=== PATIENT | female | born 1940 | race Caucasian/White ===

== ENCOUNTER 2017-05-11 03:22 | Inpatient (IN) | payer MEDICARE ==
[2017-05-11 04:24] LABS: CO2 Tension 43.6 mmHg (35.0-45.0); pH, Arterial 7.32 (7.35-7.45)
[2017-05-11 04:25] LABS: Actual Bicarbonate (HCO3a) 22.2 mEq/L (22-26); Base Excess (BEa) -3.8 mEq/L (0 (+/-) 2.5); Calcium, Ionized 1.2 mmol/L (1.12-1.30); Hematocrit-ABG 50.2 % (36.0-47.0); O2 Tension (PaO2) 55.3 mmHg (80.0-100.0)
[2017-05-11 04:26] LABS: Analyzer IN Cardio ER; Puncture Site LRA
[2017-05-11 06:10] LABS: Troponin I 1.874 ng/mL (< 0.028)
[2017-05-11] MEDS ORDERED: Enoxaparin Sodium 80 MG/0.8 ML SYRINGE ONE (06:13)
[2017-05-11] MEDS ORDERED: Ondansetron HCl/PF 4 MG/2 ML Vial IVP PRN (08:06)
[2017-05-11] MEDS ORDERED: Mag-Al 1200 mg/1200 mg/30 ML UDCUP PO PRN (08:06)
[2017-05-11] MEDS ORDERED: Nitroglycerin 0.4 MG TAB (25 Tab Bottle) PO PRN (08:06)
[2017-05-11] MEDS ORDERED: Zolpidem Tartrate 5 MG TAB PO PRN (08:06)
[2017-05-11] MEDS ORDERED: Artificial Tears 18 DROP/0.9 ML EA EYE PRN (08:06)
[2017-05-11] MEDS ORDERED: Ondansetron ODT 4 MG TAB PO PRN (08:06)
[2017-05-11] MEDS ORDERED: Loratadine 10 MG TAB PO PRN (08:06)
[2017-05-11] MEDS ORDERED: Milk Of Magnesia 30 ML UDCUP PO PRN (08:06)
[2017-05-11] MEDS ORDERED: Chloraseptic Spray 180 ml Bottle PO PRN (08:06)
[2017-05-11] MEDS ORDERED: HYDROcodone/Acetaminophen 5/325 mg Tablet PO PRN (08:06)
[2017-05-11] MEDS ORDERED: Senokot 8.6 MG TAB PO PRN (08:06)
[2017-05-11] MEDS ORDERED: Eucerin (Mineral Oil/Petrolatum,White) 30 gm Jar TOP PRN (08:06)
[2017-05-11] MEDS ORDERED: Diabetic Tussin 200 MG/10 ML UDCUP PO PRN (08:06)
[2017-05-11] MEDS ORDERED: Sodium Chloride 0.65% Nasal 44 ML BOT EA NARE PRN (08:06)
[2017-05-11] MEDS ORDERED: Loperamide HCl 2 MG CAP PO PRN (08:06)
[2017-05-11] MEDS ORDERED: Dextrose 5% in Water 1,000 ML IV PRN (08:10)
[2017-05-11] MEDS ORDERED: Dextrose 50% Abboject 50 ML SYRINGE SLOW IVP PRN (08:10)
[2017-05-11] MEDS ORDERED: HumaLOG 300 UNITS/3 ML VIAL SC PRN ×2 (08:10)
[2017-05-11 08:55] LABS: Troponin I 2.898 ng/mL (< 0.028)
[2017-05-11] MEDS ORDERED: Lisinopril 2.5 MG TAB PO SCH ×2 (09:00→21:00)
[2017-05-11] MEDS ORDERED: Aspirin 325 MG TAB PO SCH (09:00)
[2017-05-11 09:14] LABS: Hemoglobin A1c 5.1 % (4.0-6.0)
[2017-05-11] MEDS: Enoxaparin Sodium 80 MG/0.8 ML SYRINGE SC SCH ×2 (09:30→21:05)
[2017-05-11] MEDS: Aspirin 325 MG TAB PO SCH (09:31)
[2017-05-11] MEDS: Carvedilol 3.125 MG TAB PO SCH ×2 (09:31→21:04)
[2017-05-11] MEDS: Famotidine 20 MG TAB PO SCH (09:34)
--- NOTE | 2017-05-11 10:23 | HP ---
PRIMARY CARE PHYSICIAN: In [facility], this is CT call admission. REASON FOR ADMISSION: Transfer from [facility] for acute pulmonary edema, new onset CHF and non-ST elevation [place]. HISTORY OF PRESENT ILLNESS: A 76-year-old female who has history of coronary artery disease as well as history of CABG about 15 years ago. Along with that she has history of hypertension and dyslipide martir. Yesterday, patient was having cough. She was feeling shortness of breath with exertion. She went ou tside and did shopping. When she returned home, at that time, patient was having cough. She thought that everybody around her was having flu-like symptoms and that is why she was trying cough drops. Around 9:30 p.m., she went to bed, but she was not able to lie down flat. She was getting more and m ore shortness of breath. Around 11:00 p.m. she was not able to breathe at all and she was having a h armida time catching deep breath and she was comfortable in her chest congested and that is why she aske d her family member to take her to the emergency room. The patient was brought to [facility]. At that time, patient was hypertensive. Her blood pressure was 238/132. She was tachycardic with pulse 112 and tachypneic with respiratory rate 28. She was afebrile. She was barely maintaining saturation 91% on nonrebreather. The patient also had routine blood test there which showed hyperglycemia, but patient does not have a ny history of diabetes. At [facility], patient was given Lasix 80 mg. Subsequently another dose of Lasix 16 0 mg and then another dose of Lasix 80 mg x2 were given. The patient was also given DuoNeb therapy. Patient was also given Solu-Medrol 250 mg IV as well as nitropatch was applied. In the emergency room, patient's chest x-ray showed pulmonary edema. Her routine blood tests showed elevated D-dimer as well as elevated BNP. Her troponin was initially indeterminant and subsequently patient's troponin increased significantly. This patient was not complaining of any chest pain. She denies any palpitation or dizziness. She denies any lower extremity edema. She denies any constipa tion, diarrhea, melena, hematochezia. She denies any abdominal pain. She denies any UTI symptoms. PAST MEDICAL HISTORY: Coronary artery disease requiring CABG about 15 years ago, hypertension, dysli pidemia, ? history of COPD, ? history of CHF. PAST SURGICAL HISTORY: CABG, hysterectomy and tubal ligation. PAST PSYCHIATRIC HISTORY: Reviewed and negative. SOCIAL HISTORY: Patient smokes cigarettes about less than half pack per day. She denies any alcohol abuse. She denies any other illicit drug abuse. She lives at home with family. EMERGENCY ROOM COURSE: Patient is given Lasix 80 mg, then Lasix 160 mg, then Lasix 80 mg x2, Solu-Me drol 250 mg, DuoNeb therapy x2 and nitropatch was applied. REVIEW OF SYSTEMS: The following complete review of systems was negative, unless otherwise mentioned in the HPI or below: Constitutional: Weight loss or gain, ability to conduct usual activities. Skin: Rash, itching. Eyes: Double vision, pain. ENT/Mouth: Nose bleeding, neck stiffness, pain, tenderness. Cardiovascular: Palpitations, dyspnea on exertion, orthopnea. Respiratory: Shortness of breath, wheezing, cough, hemoptysis, fever or night sweats. Gastrointestinal: Poor appetite, abdominal pain, heartburn, nausea, vomiting, constipation, or diarr hea. Genitourinary: Urgency, frequency, dysuria, nocturia. Musculoskeletal: Pain, swelling. Neurologic/Psychiatric: Anxiety, depression. Allergy/Immunologic: Skin rash, bleeding tendency. Please see my HPI for pertinent positives and negatives. All other review of systems reviewed and ne gative except as mentioned in the HPI. ALLERGIES: No known drug allergies. CURRENT HOME MEDICATIONS: Metoprolol 50 mg twice daily, Lipitor 80 mg p.o. at bedtime, Prevacid 15 m g p.o. daily, aspirin 81 mg p.o. daily, Anacin for headache as needed. FAMILY HISTORY: No strong family history of premature coronary artery disease, stroke or cancer. PHYSICAL EXAMINATION: VITAL SIGNS: On arrival, blood pressure 149/86, pulse 85, respiratory rate 18, saturation 98% on BiP AP, temperature 97.9, weight 83.4 kilograms. Initially at [facility], her blood pre ssure was 213/132, pulse 112, respiratory rate 28, temperature 97.2, and saturation 91% on nonrebreat her. Currently, in ICU. The patient is currently on nasal cannula. HEAD: Normocephalic, atraumatic. EYES: Left pupil is dilated and nonreactive, and right pupil is small and reactive. ENT: Oropharynx within normal limits. Moist mucous membranes. No pharyngeal erythema, no exudates. NECK: Supple, no JVD, no thyromegaly, no carotid bruits. LUNGS: Bibasilar rales noted. No rhonchi. At this point, no wheeze. No accessory muscles of respi ration in use. CARDIAC: S1, S2 regular. No murmur, no gallop, no rub. ABDOMEN: Soft, bowel sounds present, nontender, nondistended. No organomegaly, no mass, no suprapub ic tenderness. BACK: Examination unremarkable, no CVA tenderness. EXTREMITIES: Upper extremity passive movements of all joints are normal. Lower extremities: No aman ma. Good peripheral pulsation. No calf tenderness. SKIN: No skin rash. HEMATOLOGICAL SYSTEM: No lymphadenopathy. PSYCHIATRIC: Normal affect. NEUROLOGIC: The patient is alert and oriented x3. Cranial nerves II-XII intact. Motor and sensatio n within normal limits. No focal neurological deficit noted. IMAGING AND SIGNIFICANT LABORATORY DATA: 1. EKG based on my review, complete left bundle branch block pattern, left atrial enlargement. 2. Chest x-ray consistent with bilateral pulmonary congestion with pleural effusion and pulmonary ed ami. 3. CT brain based on my review, no acute intracranial process. 4. CBC: WBC 14.7, hemoglobin 15.3, platelets 178 with bandemia. INR 1.1. D-dimer 2.20. 5. ABG: A pH 7.32, CO2 43.6, O2 55.3, saturation 88.5, bicarbonate 22.2. 6. BMP: Sodium 145, potassium 3.7, chloride 107, carbon dioxide 22, anion gap 22, BUN 18, creatinin e 1.15, glucose 333, calcium 8.4, hemoglobin A1c 5.1. 7. LFT: AST 72, ALT 38, alkaline phosphatase 135, albumin 3.7, CK-MB 2.7, troponin I 0.061, then 1. 874, then 2.89, BNP 2180. ASSESSMENT AND PLAN/IMPRESSION: 1. Acute hypoxic respiratory failure due to acute pulmonary edema due to acute congestive heart fail ure, likely systolic, not resolved. The patient required initially bilevel positive airway pressure in the emergency room. The patient required Lasix and after that the patient had significant improve ment in her pulmonary edema. Initially, chest x-ray showed pulmonary edema, but repeat chest x-ray s hows improvement in congestion. We will try to wean off oxygen as tolerated. 2. Acute pulmonary edema, likely due to acute systolic congestive heart failure. Pulmonary edema antoine s significantly improved after bilevel positive airway pressure as well as diuretic therapy. Repeat chest x-ray also shows improvement. 3. Acute congestive heart failure. The patient was having acute pulmonary edema and acute dyspnea. Etiology uncertain, but suspecting from cardiac etiology. It is unclear whether this patient has pr evious history of congestive heart failure, but patient denies by herself. We will obtain echocardio graphy to assess ejection fraction and other structural abnormality. I am suspecting systolic conges tive heart failure. I will start Coreg 3.125 mg p.o. b.i.d., lisinopril 2.5 mg p.o. daily, nitropatc h q.8 hourly and we will continue Lasix 40 mg IV b.i.d. and cardiac rehabilitation will be consulted. Cardiology will be consulted as well. We will monitor electrolytes and replace electrolytes as nee ded basis. 4. Non-ST elevation myocardial infarction, most likely related with demand ischemia, but the patient has a history of coronary artery disease and coronary artery bypass graft about 15 years ago. She n ever had any further evaluation. This patient had several risk factors for coronary artery disease a s well. I consulted Cardiology and spoke with Dr. Fabian and patient will need cardiac catheteriza tion upon stabilization. We will also check lipid profile tomorrow and we will continue with aspirin 325 mg p.o. daily, Lovenox 1 mg per kg along with KARINA inhibitor and beta-uriel therapy. 5. Hyperglycemia. This patient has hyperglycemia when they checked blood tests in midnight. Hemogl obin A1c is 5.1. Today, we will just monitor Accu-Chek and if Accu-Chek returns out to be normal the n we will discontinue hyperglycemia protocol treatment. 6. Hypertension with hypertensive urgency on admission. Hypertensive urgency, resolved. We will co ntinue with Coreg and lisinopril as above, nitropatch as above along with Lasix therapy and adjust bl ood pressure medication. 7. Coronary artery disease. Patient is already on full treatment for coronary artery disease. Curr ently, patient has mty-RI-rpxtyciys myocardial infarction and that is why Cardiology consulted. 8. Dyslipidemia. We will check lipid profile tomorrow and continue Lipitor 40 mg p.o. at bedtime. 9. Left bundle branch block, etiology uncertain, but onset is also uncertain. It is unclear whether this is new or old, but we will try to obtain the old EKG from her primary care physician or cardiol ogist if possible. 10. Elevated D-dimer. We will do ultrasound of the lower extremity to rule out any deep venous thro mbosis. 11. Pupillary asymmetry. This patient does not have any diplopia or any blurred vision or does not have any focal neurological deficit, but patient did not know this, but she does have a history of ca taract surgery. We will try to do CT brain to rule out any process, but I doubt if patient has any p roblems with this. 12. Deep venous thrombosis prophylaxis. Patient is already on full dose of Lovenox therapy. 13. Gastrointestinal prophylaxis. Pepcid 20 mg p.o. b.i.d. 14. Code status: The patient is FULL CODE. Disposition plan based on clinical course. Total time spent providing critical care to this patient is more than 30 minutes.
--- NOTE | 2017-05-11 10:26 | CT ---
CT BRAIN WITHOUT CONTRAST: Date: 05/11/17 HISTORY: Unequal pupils. Evaluate for hemorrhage. COMPARISON: None. FINDINGS: No acute territorial infarct or hemorrhage. No midline shift or mass effect. Ventricular size and ext ra-axial CSF spaces are normal. Calvarium is intact. Paranasal sinuses and mastoids are clear. IMPRESSION: No acute intracranial abnormality. POS: [facility]
--- NOTE | 2017-05-11 11:15 | RAD ---
AP VIEW OF CHEST: Date: 05/11/17 HISTORY: Congestive heart failure. FINDINGS: Comparison made to previous exam from 05/11/17. AP view of chest demonstrates sternotomy wires seen. Cardiomegaly is noted. There are marked decrease d perihilar air space opacities compatible with resolving pulmonary edema significantly improved from the previous exam obtained earlier in the day. No evidence of effusions seen. IMPRESSION: 1. Decreasing perihilar air space opacities compatible with decreased pulmonary edema. 2. Cardiomegaly. 3. Some residual pulmonary vascular congestion seen. POS: [facility]
[2017-05-11 12:01] LABS: Troponin I 3.447 ng/mL (< 0.028)
[2017-05-11] MEDS ORDERED: Furosemide 100 MG/10 ML VIAL SLOW IVP SCH (14:00)
[2017-05-11] MEDS: Nitroglycerin 2% Ointment 1 INCH/1 GM Packet TOP SCH ×2 (14:08→21:05)
[2017-05-11] MEDS: Furosemide 40 MG/4 ML VIAL SLOW IVP SCH (14:09)
[2017-05-11 14:27] LABS: Bilirubin Negative (Negative); Blood, Urine Large (Negative); Clarity CLOUDY (Clear); Glucose, Urine (Dipstick) Negative (Negative); Leukocyte Small (Negative); Nitrite Negative (Negative); Protein, Urine (Dipstick) 100 mg/dL (Neg-Trace); Specific Gravity, Urine 1.023 (1.002-1.036); Urobilinogen 0.2 mg/dL (0.2-1.0)
[2017-05-11 14:31] LABS: RBC/HPF GREATER THAN 50-TNTC HPF (0-3); WBC/HPF 21-50 HPF (0-3)
[2017-05-11 14:32] LABS: Pathc Cast-AUWi Flag 5.96 (0-2.49)
[2017-05-11 14:53] LABS: Bacteria/HPF 1+ HPF (None Seen); Hyaline Casts/LPF 0-3 HYALINE CAST LPF (0-3 Hyaline); Manual Microscopic Reviewed? No Path Casts Seen; Renal Epithelial None Seen HPF (0-3); Transitional Epithelial NONE SEEN HPF (0-3)
--- NOTE | 2017-05-11 16:16 | ULT ---
BILATERAL LOWER EXTREMITY VENOUS DOPPLER ULTRASOUND: Date: 05/11/17 HISTORY: Elevated D-Dimer. TECHNIQUE: Multiple longitudinal and transverse images of the right and left lower extremity venous systems are obtained using multihertz linear array transducer. Real-time, color flow, and spectral waveform Doppl er analysis used to evaluate the right and left lower extremity venous systems. FINDINGS: No evidence of acute or old clot seen on the right or left common femoral, superficial femoral, femor a profunda, popliteal, posterior tibial veins, post-trifurcation veins, and greater saphenous veins. IMPRESSION: No evidence of right or left lower extremity deep venous thrombosis. POS: [facility]
[2017-05-11 16:50] LABS: Critical Call Chem Troponin I RESULT DECREASING; Troponin I 3.049 ng/mL (< 0.028)
--- NOTE | 2017-05-11 19:14 | CON ---
DATE OF CONSULTATION: 05/11/2017 HISTORY OF PRESENT ILLNESS: The patient is a 76-year-old woman who presents for evaluation of increa sing acute onset of dyspnea. The patient states approximately 15 years ago, she underwent coronary b ypass graft surgery x4. The patient has done extremely well. Unfortunately, she has continued to ab use tobacco. She states that yesterday she developed acute onset of dyspnea. She denied having any chest discomfort. She came to the hospital markedly short of breath. PAST MEDICAL HISTORY: Significant for, 1. Coronary artery disease. 2. Hypertension. 3. Dyslipidemia. PAST SURGICAL HISTORY: Coronary bypass graft surgery, hysterectomy, tubal ligation. SOCIAL HISTORY: The patient has a long history of continued tobacco abuse. MEDICATIONS ON ADMISSION: Lipitor 80 at bedtime, aspirin 81 daily, metoprolol 50 XL p.o. b.i.d., and Prevacid 1 tablet daily. ALLERGIES: No known drug allergies. FAMILY HISTORY: Positive family history of coronary artery disease. PHYSICAL EXAMINATION: GENERAL: This is a well-developed woman in no acute distress. VITAL SIGNS: Blood pressure 128/50. NECK: Showed no jugular venous distention. LUNGS: Have a few crackles in both bases. HEART: Regular rate and rhythm, normal S1 and S2 with a 1/6 systolic murmur. ABDOMEN: Nondistended. EXTREMITIES: Showed mild bilateral edema. SKIN: Warm and dry. NEUROLOGIC: Nonfocal. VASCULAR: Radial pulses are 2+. LABORATORY RESULTS: Got her to have a white blood count 14.7, hemoglobin 15.3, hematocrit 47.9, and her platelets are 178. Sodium was 145, potassium 3.7, chloride 107, bicarbonate 20, BUN 18, creatini ne 1.15, troponin was 1.874, BNP was 2180. IMAGING DATA: Her EKG revealed her to have normal sinus rhythm with a left bundle branch block. Holli st x-ray revealed cardiomegaly with pulmonary vascular congestion. Echocardiogram revealed severe de crease in left systolic function, estimated ejection fraction 20% to 25%, left ventricle is dilated. IMPRESSION: 1. Congestive heart failure, acute systolic. 2. Non-ST elevation myocardial infarction. 3. Severe ischemic cardiomyopathy. 4. History of coronary bypass graft surgery x4. 5. Dyslipidemia. 6. Hypertension. 7. Tobacco abuse. This unfortunate woman has a severe ischemic cardiomyopathy, who presented with acute pulmonary edema . From a cardiac standpoint, she will be switched to Coreg and started on KARINA inhibitor therapy. Th e patient will be continued on aspirin and lipid lowering medication. We will discuss with the patie nt and her family whether they would like to proceed with repeat invasive evaluation. We will also a dd spironolactone. We will follow this patient with you through her hospitalization. Critical care note time is 60 minutes.
[2017-05-11] MEDS ORDERED: FLU VACC TS2017-18 (>65YR) 0.5 ML SYRINGE IM ONE (21:00)
[2017-05-11] MEDS: Atorvastatin Calcium 40 MG TAB PO SCH (21:04)
[2017-05-11] MEDS: Sodium Chloride 0.9% 10 ML ONE (21:10)
[2017-05-11] MEDS ORDERED: Sodium Chloride 0.9% 10 ML ONE (21:41)
[2017-05-11] MEDS: hydrALAZINE 20 MG/ML VIAL SLOW IVP PRN (21:42)
[2017-05-11] MEDS: Acetaminophen 325 MG TAB PO PRN (21:42)
--- NOTE | 2017-05-12 00:32 | CON ---
DATE OF CONSULTATION: 05/11/2017 HISTORY OF PRESENT ILLNESS: Mr. Quintanilla is a 76-year-old female. She had coronary artery bypass g dariusz 15 years ago. She had 4-vessel bypass. Unfortunately, she has continued to smoke, although she says "not that much ." She smoked less than half pack a day, but I have explained to her this does not help her bypass g ubaldo. Yesterday she started having progressive shortness of breath. She had some chest tightness as well. She subsequently was admitted. She was aggressively diuresed and says she is 100% better. PAST MEDICAL HISTORY: Remarkable for hypertension, lipid disorder, hysterectomy and tubal ligation. SOCIAL HISTORY: She smokes a half pack a day. She is not drinking. ALLERGIES: Reports no drug allergies. MEDICATIONS: Prior to admission, she was on Lipitor, aspirin, metoprolol, and Prevacid. FAMILY HISTORY: She has a family history of vascular disease. No history of lung disease at an susan y age. REVIEW OF SYSTEMS: She denies headache. She denies fever, chills leading up to this. She denies pleuritic chest discomfort or hemoptysis. He has had no nausea, vomiting, diarrhea, bright red blood per rectum, melena, gross hematuria or dys uria. Ten-point review of systems otherwise negative. PHYSICAL EXAMINATION: VITAL SIGNS: Blood pressure 159/73 this evening. She is afebrile, heart rate 76, respiratory rate 1 8, oximetry is 92. HEENT: Pupils are equal. Sclerae is anicteric. NECK: Supple. LUNGS: Clear. HEART: Regular rhythm. S1 and S2 are normal. ABDOMEN: Soft. EXTREMITIES: Without asymmetry. LABORATORY DATA: White count was 14.7, hemoglobin 15.3, platelets 178,000. Sodium 145, potassium 3. 7, chloride 107, bicarbonate 20, BUN 18, creatinine 1.15, pH 7.32, CO2 of 43, PO2 of 55 earlier this morning. I repeated a radiograph this morning which showed improvement of her pulmonary edema. IMPRESSION: Cardiogenic pulmonary edema, clinically improved. She is stable. I do not believe she needs to remain in the Critical Care Unit. I recommended transfer out to a monitored bed. This is a 70 minute consult, greater than 70% of the time was spent reviewing records, interviewing the patien t and confirmed with nursing staff on the unit.
[2017-05-12] MEDS ORDERED: Sodium Chloride 0.9% 10 ML ONE ×3 (05:44→18:48)
[2017-05-12 06:04] LABS: #Lymphocytes 1.4 thou/uL (1.20-3.40); #Monocytes 1.1 thou/uL (0.11-0.59); #Neutrophils 12.6 thou/uL (1.40-6.50); %Eosinophils 0.1 % (0.0-10.0); %Lymphocytes 9.1 % (21.0-51.0); %Neutrophils 83.7 % (42.0-75.0); Hemoglobin 14.7 g/dL (12.0-16.0); Mean Corpuscular HGB CONC 32.2 g/dL (32.0-36.0); Mean Corpuscular Hemoglobin 31.4 pg (27.0-31.0); Mean Corpuscular Volume 97.5 fl (81.0-99.0); Mean Platelet Volume 9.4 fL (7.4-10.4); Platelet Count 139 thou/uL (130-400); RBC Distribution Width 13.2 % (11.5-14.5); Red Blood Cell (RBC) Count 4.68 mill/uL (4.20-5.40)
[2017-05-12] MEDS: Furosemide 40 MG/4 ML VIAL SLOW IVP SCH ×2 (06:16→15:29)
[2017-05-12] MEDS: Nitroglycerin 2% Ointment 1 INCH/1 GM Packet TOP SCH (06:18)
[2017-05-12 06:23] LABS: ALT (SGPT) 26 U/L (8-55); AST (SGOT) 46 U/L (5-34); Albumin 3.5 g/dL (3.4-4.8); Alkaline Phosphatase 96 U/L (40-150); Anion Gap 15 mmol/L (10-20); BUN (Urea Nitrogen) 27 mg/dL (9.8-20.1); Calc. Creatinine Clearance 66 mL/min (70-130); Calcium 8.8 mg/dL (7.8-10.44); Carbon Dioxide 24 mmol/L (23-31); Cardiac Risk 2.7 (Less than 4.5); Cholesterol 121 mg/dl (< 200 Desired); Estimated GFR-MDRD 62; Glucose 101 mg/dL (83-110); HDL Cholesterol 45 mg/dL (>60 Neg Risk); LDL Cholesterol, Calculated 63 mg/dL; Magnesium 1.8 mg/dL (1.6-2.6); Potassium 3.3 mmol/L (3.5-5.1); Protein, Total 7.5 g/dL (6.0-8.3); Sodium 136 mmol/L (136-145); Triglycerides 66 mg/dL (Less than 150); Uric Acid 6.1 mg/dL (2.6-6.0)
[2017-05-12 06:32] LABS: Chloride 100 mmol/L (98-107)
[2017-05-12] MEDS ORDERED: cefTRIAXone\\ROCEPHIN 1 GM in Sodium Chloride 0.9% 100 ML IVPB SCH (08:45)
[2017-05-12] MEDS ORDERED: Lisinopril 5 MG TAB PO SCH (09:00)
[2017-05-12] MEDS: Spironolactone 25 MG TAB PO SCH (09:12)
[2017-05-12] MEDS: Aspirin 325 MG TAB PO SCH (09:13)
[2017-05-12] MEDS: Famotidine 20 MG TAB PO SCH (09:13)
[2017-05-12] MEDS: Enoxaparin Sodium 80 MG/0.8 ML SYRINGE SC SCH ×2 (09:14→20:45)
[2017-05-12] MEDS ORDERED: Carvedilol 6.25 MG TAB PO SCH (09:30)
[2017-05-12] MEDS: Acetaminophen 325 MG TAB PO PRN (11:40)
[2017-05-12] MEDS: Sodium Chloride 0.9% 10 ML ONE (11:41)
--- NOTE | 2017-05-12 11:57 | PDOC.PN ---
- Subjective Encounter Start Date: 05/12/17 Encounter Start Time: 07:15 -: old records requested/rev pt did not sleep good last night, has dyspnea, has cough, no fever, no chest pain, family bedside - Objective Resuscitation Status: Resuscitation Status FULL:Full Resuscitation MAR Reviewed: Yes Vital Signs & Weight: Vital Signs (12 hours) Temp Pulse Resp BP BP Pulse Ox 05/12/17 11:00 97.8 F 81 18 143/65 H 93 L 05/12/17 09:26 169/77 H 05/12/17 09:25 91 169/77 H 05/12/17 08:05 172/84 H 05/12/17 07:40 99.0 F 91 17 192/84 H 92 L 05/12/17 06:13 90 20 193/88 H 05/12/17 04:00 98.1 F 85 24 H 158/68 H 91 L Weight Weight 169 lb 1.6 oz Most Recent Monitor Data Heart Rate from ECG 82 NIBP 156/65 NIBP BP-Mean 99 Respiration from ECG 20 SpO2 95 I&O: 05/11/17 05/12/17 05/13/17 06:59 06:59 06:59 Intake Total 914 Output Total 1735 Balance -821 Result Diagrams: 05/12/17 05:24 05/12/17 05:24 Additional Labs: Accuchecks 05/12/17 05/11/17 05/11/17 06:30 20:06 16:31 POC Glucose 117 H 127 H 134 H Radiology Reviewed by me: Yes (echo- systolic dysfunction) EKG Reviewed by me: Yes (nsr) Phys Exam - Physical Examination Constitutional: NAD HEENT: PERRLA, moist MMs, sclera anicteric Neck: no JVD, supple Respiratory: no wheezing, no rhonchi basilar rales Cardiovascular: RRR, no significant murmur, no rub Gastrointestinal: soft, non-tender, no distention, positive bowel sounds Musculoskeletal: no edema, pulses present Neurological: non-focal, normal sensation, moves all 4 limbs Psychiatric: normal affect, A&O x 3 Skin: no rash, normal turgor Dx/Plan (1) Acute respiratory failure with hypoxia Code(s): J96.01 - ACUTE RESPIRATORY FAILURE WITH HYPOXIA Status: Acute (2) Acute systolic CHF (congestive heart failure) Code(s): I50.21 - ACUTE SYSTOLIC (CONGESTIVE) HEART FAILURE Status: Acute (3) Hypokalemia Code(s): E87.6 - HYPOKALEMIA Status: Acute (4) NSTEMI (non-ST elevated myocardial infarction) Code(s): I21.4 - NON-ST ELEVATION (NSTEMI) MYOCARDIAL INFARCTION Status: Acute (5) UTI (urinary tract infection) Status: Acute (6) CAD (coronary artery disease) Code(s): I25.10 - ATHSCL HEART DISEASE OF [place] CORONARY ARTERY W/O ANG PCTRS Status: Chronic (7) Dyslipidemia Code(s): E78.5 - HYPERLIPIDEMIA, UNSPECIFIED Status: Chronic (8) Hypertension Code(s): I10 - ESSENTIAL (PRIMARY) HYPERTENSION Status: Chronic (9) Acute pulmonary edema Code(s): J81.0 - ACUTE PULMONARY EDEMA Status: Resolved (10) Hypertensive urgency Code(s): I16.0 - HYPERTENSIVE URGENCY Status: Resolved - Plan cont current plan of care, plan discussed w/ family, continue antibiotics * today will increase coreg and lisinopril * continue lasix * add rocephin for aysmptmatic UTI * cardiology following and decide for if needed any cardiac cath * will adjust BP meds * discussed with family * medication reviewed as below * symptomatic treatment * replace potassium * repeat labs tomorrow * wean off oxygen as needed * DC Rios tomorrow * continue current optimal medical therapy for NSTEMI and CHF. * cardiac rehab Review of Systems - Review of Systems Constitutional: negative: fever, chills, sweats, weakness, malaise, other Eyes: negative: Pain, Vision Change, Conjunctivae Inflammation, Eyelid Inflammation, Redness, Other Respiratory: Cough, Shortness of Breath, SOB with Excertion. negative: Dry, Hemoptysis, Pleuritic Pain, Sputum, Wheezing Cardiovascular: negative: chest pain, palpitations, orthopnea, paroxysmal nocturnal dyspnea, edema, light headedness, other Gastrointestinal: negative: Nausea, Vomiting, Abdominal Pain, Diarrhea, Constipation, Melena, Hematochezia, Other Genitourinary: negative: Dysuria, Frequency, Incontinence, Hematuria, Retention , Other Musculoskeletal: negative: Neck Pain, Shoulder Pain, Arm Pain, Back Pain, Hand Pain, Leg Pain, Foot Pain, Other Skin: negative: Rash, Lesions, John, Bruising, Other - Medications/Allergies Allergies/Adverse Reactions: Allergies Allergy/AdvReac Type Severity Reaction Status Date / Time No Known Allergies Allergy Unverified 05/11/17 07:42 Medications: Current Medications Acetaminophen (Tylenol) 650 mg PO Q4H PRN PRN Reason: Headache/Fever or Pain Last Admin: 05/12/17 11:40 Dose: 650 mg Hydrocodone Bitart/Acetaminophen ([place] 5/325) 1 tab PO Q4H PRN PRN Reason: Moderate Pain (4-6) Al Hydroxide/Mg Hydroxide (Maalox) 30 ml PO Q6H PRN PRN Reason: Heartburn or Indigestion Artificial Tears (Tears Naturale) 0 drop EA EYE PRN PRN PRN Reason: Dry Eyes Aspirin (Aspirin) 325 mg PO DAILY [facility] Last Admin: 05/12/17 09:13 Dose: 325 mg Atorvastatin Calcium (Lipitor) 40 mg PO [facility] Last Admin: 05/11/17 21:04 Dose: 40 mg Carvedilol (Coreg) 6.25 mg PO BID-[facility] Carvedilol (Coreg) 6.25 mg PO NOW [facility] Stop: 05/12/17 12:00 Last Admin: 05/12/17 09:26 Dose: 6.25 mg Dextrose/Water (Dextrose 50%) 25 gm SLOW IVP PRN PRN PRN Reason: Hypoglycemia Enoxaparin Sodium (Lovenox) 80 mg SC 0900,2100 [facility] Last Admin: 05/12/17 09:14 Dose: 80 mg Famotidine (Pepcid) 20 mg PO DAILY [facility] Last Admin: 05/12/17 09:13 Dose: 20 mg Furosemide (Lasix) 40 mg SLOW IVP 0600,1400 [facility] Last Admin: 05/12/17 06:16 Dose: 40 mg Glucagon (Glucagon) 1 mg IM PRN PRN PRN Reason: Hypoglycemia Guaifenesin (Robitussin Sf) 200 mg PO Q4H PRN PRN Reason: Cough Last Admin: 05/12/17 09:24 Dose: 200 mg Hydralazine HCl (Apresoline) 10 mg SLOW IVP Q4H PRN PRN Reason: Systolic BP > 180 Last Admin: 05/11/17 21:42 Dose: 10 mg Dextrose/Water (D5w) 1,000 mls @ 0 mls/hr IV .Q0M PRN; As Directed PRN Reason: Hypoglycemia Ceftriaxone Sodium 1 gm/ (Sodium Chloride) 100 mls @ 200 mls/hr IVPB Q24HR [facility] Last Admin: 05/12/17 11:40 Dose: 100 mls Insulin Human Lispro (Humalog) 0 units SC .MODERATE SLIDING SC PRN PRN Reason: Moderate Correctional Scale Last Admin: 05/11/17 10:15 Dose: 2 unit Insulin Human Lispro (Humalog) 0 units SC .BEDTIME SLIDING SC PRN PRN Reason: Bedtime Correctional Scale Lisinopril (Zestril) 5 mg PO BID [facility] Last Admin: 05/12/17 09:25 Dose: 5 mg Loperamide HCl (Imodium) 2 mg PO PRN PRN PRN Reason: Diarrhea/Loose Stools Loratadine (Claritin) 10 mg PO DAILYPRN PRN PRN Reason: Sinus Symptoms Magnesium Hydroxide (Milk Of Magnesium) 30 ml PO DAILYPRN PRN PRN Reason: Constipation Mineral Oil/White Petrolatum (Eucerin Cream) 0 gm TOP BIDPRN PRN PRN Reason: Dry Skin Nitroglycerin (Nitrostat) 0.4 mg PO Q5MIN PRN PRN Reason: Chest Pain Nitroglycerin (Nitro-Bid 2% Ointment) 0.5 inch TOP Q8HR [facility] Last Admin: 05/12/17 06:18 Dose: 0.5 inch Ondansetron HCl (Zofran Odt) 4 mg PO Q6H PRN PRN Reason: Nausea/Vomiting Ondansetron HCl (Zofran) 4 mg IVP Q6H PRN PRN Reason: Nausea/Vomiting Phenol (Chloraseptic [place] 180 Ml Bot) 0 ml PO PRN PRN PRN Reason: Sore Throat Potassium Chloride (K-Dur) [address] [facility] Senna (Senokot) 2 tab PO HSPRN PRN PRN Reason: Constipation Sodium Chloride ([place] Nasal [place] 0.65%) 0 ml EA NARE QIDPRN PRN PRN Reason: Nasal Congestion Spironolactone (Aldactone) 25 mg PO QA-[facility] Last Admin: 05/12/17 09:12 Dose: 25 mg Zolpidem Tartrate (Ambien) 5 mg PO HSPRN PRN PRN Reason: Insomnia
[2017-05-12] MEDS ORDERED: Potassium Chloride 20 MEQ TAB PO SCH (17:30)
--- NOTE | 2017-05-12 18:31 | PRG ---
DATE OF SERVICE: 05/12/2017 SUBJECTIVE: Marianne Quintanilla is not having any shortness of breath. She does report some cough and c hest congestion. PHYSICAL EXAMINATION: VITAL SIGNS: She is afebrile, heart rate is 85, respiratory rate is 18, blood pressure 146/67. Inta ke and output is negative 821. LUNGS: Remarkable for faint wheezes. IMPRESSION: 1. Cardiogenic pulmonary edema/new onset of congestive heart failure this admission. 2. Ejection fraction of 20%-25%. 3. History of smoking ? some component of chronic obstructive pulmonary disease versus retained secr etions, and atelectasis. PLAN: Add nebulizer treatments. Continue current care. Take albuterol 4 times a day while awake.
[2017-05-12] MEDS: Carvedilol 6.25 MG TAB PO SCH (18:41)
[2017-05-12] MEDS: hydrALAZINE 20 MG/ML VIAL SLOW IVP PRN (18:50)
[2017-05-12] MEDS: Atorvastatin Calcium 40 MG TAB PO SCH (20:45)
[2017-05-13] MEDS: Furosemide 40 MG/4 ML VIAL SLOW IVP SCH ×2 (05:38→14:34)
[2017-05-13 06:01] LABS: #Lymphocytes 1.1 thou/uL (1.20-3.40); #Monocytes 1.1 thou/uL (0.11-0.59); #Neutrophils 5.7 thou/uL (1.40-6.50); %Basophils 0.1 % (0.0-1.0); %Eosinophils 0.1 % (0.0-10.0); %Lymphocytes 13.8 % (21.0-51.0); %Monocytes 13.5 % (0.0-10.0); %Neutrophils 72.6 % (42.0-75.0); Hemoglobin 15.5 g/dL (12.0-16.0); Mean Corpuscular HGB CONC 32.6 g/dL (32.0-36.0); Mean Corpuscular Hemoglobin 31.9 pg (27.0-31.0); Mean Corpuscular Volume 97.7 fl (81.0-99.0); Mean Platelet Volume 9.5 fL (7.4-10.4); Platelet Count 118 thou/uL (130-400); RBC Distribution Width 13.4 % (11.5-14.5); Red Blood Cell (RBC) Count 4.86 mill/uL (4.20-5.40); White Blood Cell (WBC) Count 7.8 thou/uL (4.8-10.8)
[2017-05-13 06:08] LABS: Anion Gap 15 mmol/L (10-20); BUN (Urea Nitrogen) 28 mg/dL (9.8-20.1); Calc. Creatinine Clearance 62 mL/min (70-130); Calcium 8.8 mg/dL (7.8-10.44); Carbon Dioxide 28 mmol/L (23-31); Chloride 97 mmol/L (98-107); Estimated GFR-MDRD 57; Glucose 81 mg/dL (83-110); Potassium 3.1 mmol/L (3.5-5.1); Sodium 137 mmol/L (136-145)
[2017-05-13] MEDS: Carvedilol 6.25 MG TAB PO SCH ×4 (08:32→21:07)
[2017-05-13] MEDS: Enoxaparin Sodium 80 MG/0.8 ML SYRINGE SC SCH ×2 (08:33→21:10)
[2017-05-13] MEDS: Famotidine 20 MG TAB PO SCH (08:33)
[2017-05-13] MEDS: Lisinopril 10 MG TAB PO SCH ×2 (08:33→21:06)
[2017-05-13] MEDS: Potassium Chloride 20 MEQ TAB PO SCH (08:37)
[2017-05-13] MEDS: Spironolactone 25 MG TAB PO SCH (08:37)
[2017-05-13] MEDS: Aspirin 325 MG TAB PO SCH (08:37)
[2017-05-13] MEDS: cefTRIAXone\\ROCEPHIN 1 GM, Syringe 0.4 ML in Sterile Water 9.6 ML SLOW IVP SCH (12:38)
[2017-05-13] MEDS ORDERED: Sodium Chloride 0.9% 10 ML ONE (12:50)
--- NOTE | 2017-05-13 15:30 | PDOC.PN ---
- Subjective Encounter Start Date: 05/13/17 Encounter Start Time: 15:29 Patient seen at bedside. No new complaints, less SOB. - Objective Resuscitation Status: Resuscitation Status FULL:Full Resuscitation MAR Reviewed: Yes Vital Signs & Weight: Vital Signs (12 hours) Temp Pulse Pulse Pulse Resp BP BP 05/13/17 14:02 77 18 05/13/17 12:52 83 67 140/63 05/13/17 12:42 97.6 F 62 19 05/13/17 10:56 73 20 05/13/17 08:33 171/80 H 05/13/17 08:32 171/80 H 05/13/17 08:24 98.1 F 84 19 05/13/17 07:25 05/13/17 07:24 89 24 H 05/13/17 03:31 97.5 F L 81 16 BP BP BP BP Pulse Ox Pulse Ox Pulse Ox 05/13/17 14:02 95 05/13/17 12:52 121/57 L 90 L 94 L 05/13/17 12:42 143/67 H 93 L 05/13/17 10:56 95 05/13/17 08:33 05/13/17 08:32 05/13/17 08:24 171/80 H 96 05/13/17 07:25 94 L 05/13/17 07:24 99 05/13/17 03:31 147/65 H Weight Weight 170 lb Most Recent Monitor Data Heart Rate from ECG 82 NIBP 156/65 NIBP BP-Mean 99 Respiration from ECG 20 SpO2 95 I&O: 05/12/17 05/13/17 05/14/17 06:59 06:59 06:59 Intake Total 914 1045 Output Total 1735 1999 Balance -821 -923 Result Diagrams: 05/13/17 04:30 05/13/17 04:30 Additional Labs: Accuchecks 05/13/17 05/12/17 05/12/17 11:51 20:17 17:02 POC Glucose 102 103 83 05/12/17 11:27 POC Glucose 104 Phys Exam - Physical Examination Constitutional: NAD HEENT: moist MMs Neck: no JVD Respiratory: clear to auscultation bilateral Cardiovascular: RRR Gastrointestinal: soft Musculoskeletal: no edema Neurological: moves all 4 limbs Psychiatric: A&O x 3 Dx/Plan (1) Acute respiratory failure with hypoxia Code(s): J96.01 - ACUTE RESPIRATORY FAILURE WITH HYPOXIA Status: Resolved (2) Acute systolic CHF (congestive heart failure) Code(s): I50.21 - ACUTE SYSTOLIC (CONGESTIVE) HEART FAILURE Status: Acute (3) UTI (urinary tract infection) Status: Suspected (4) Dyslipidemia Code(s): E78.5 - HYPERLIPIDEMIA, UNSPECIFIED Status: Chronic (5) Hypertension Code(s): I10 - ESSENTIAL (PRIMARY) HYPERTENSION Status: Chronic - Plan cont current plan of care, continue antibiotics, respiratory therapy, DVT proph w/lovenox * Continue with diuresis. * BB/Statin/ASA * For cardiac cath in AM to evaluate cardiomyopathy * Rocephin for suspected UTI
--- NOTE | 2017-05-13 16:41 | PDOC.PULPN ---
Progress Note: Subj/Obj - Subjective Date: 05/13/17 Time: 16:40 Subjective: No acute complaints. Breathing is OKs - ROS All systems: reviewed and no additional remarkable complaints except as stated - Objective Allergies/Adverse Reactions: Allergies Allergy/AdvReac Type Severity Reaction Status Date / Time No Known Allergies Allergy Unverified 05/11/17 07:42 Medications: Current Medications Acetaminophen (Tylenol) 650 mg PO Q4H PRN PRN Reason: Headache/Fever or Pain Last Admin: 05/12/17 11:40 Dose: 650 mg Hydrocodone Bitart/Acetaminophen ([place] 5/325) 1 tab PO Q4H PRN PRN Reason: Moderate Pain (4-6) Al Hydroxide/Mg Hydroxide (Maalox) 30 ml PO Q6H PRN PRN Reason: Heartburn or Indigestion Albuterol/Ipratropium (Duoneb) 3 ml NEB [id number] SCH Last Admin: 05/13/17 14:02 Dose: 3 ml Artificial Tears (Tears Naturale) 0 drop EA EYE PRN PRN PRN Reason: Dry Eyes Aspirin (Aspirin) 325 mg PO DAILY [facility] Last Admin: 05/13/17 08:37 Dose: 325 mg Atorvastatin Calcium (Lipitor) 80 mg PO HS [facility] Carvedilol (Coreg) 6.25 mg PO BID-[facility] Last Admin: 05/13/17 08:32 Dose: 6.25 mg Carvedilol (Coreg) 6.25 mg PO TID [facility] Last Admin: 05/13/17 15:40 Dose: 6.25 mg Dextrose/Water (Dextrose 50%) 25 gm SLOW IVP PRN PRN PRN Reason: Hypoglycemia Enoxaparin Sodium (Lovenox) 40 mg SC 0900,2100 [facility] Stop: 05/13/17 23:59 Last Admin: 05/13/17 08:33 Dose: 40 mg Famotidine (Pepcid) 20 mg PO DAILY [facility] Last Admin: 05/13/17 08:33 Dose: 20 mg Furosemide (Lasix) 40 mg SLOW IVP 0600,1400 [facility] Last Admin: 05/13/17 14:34 Dose: 40 mg Glucagon (Glucagon) 1 mg IM PRN PRN PRN Reason: Hypoglycemia Guaifenesin (Robitussin Sf) 200 mg PO Q4H PRN PRN Reason: Cough Last Admin: 05/12/17 09:24 Dose: 200 mg Hydralazine HCl (Apresoline) 10 mg SLOW IVP Q4H PRN PRN Reason: Systolic BP > 180 Last Admin: 05/12/17 18:50 Dose: 10 mg Dextrose/Water (D5w) 1,000 mls @ 0 mls/hr IV .Q0M PRN; As Directed PRN Reason: Hypoglycemia Ceftriaxone Sodium 1 gm/ (Syringe 0.4 ml/ Sterile Water) 10 mls @ 120 mls/hr SLOW IVP Q24HR@1200 [facility] Last Admin: 05/13/17 12:38 Dose: 10 mls Insulin Human Lispro (Humalog) 0 units SC .MODERATE SLIDING SC PRN PRN Reason: Moderate Correctional Scale Last Admin: 05/11/17 10:15 Dose: 2 unit Insulin Human Lispro (Humalog) 0 units SC .BEDTIME SLIDING SC PRN PRN Reason: Bedtime Correctional Scale Lisinopril (Zestril) 10 mg PO BID [facility] Last Admin: 05/13/17 08:33 Dose: 10 mg Loperamide HCl (Imodium) 2 mg PO PRN PRN PRN Reason: Diarrhea/Loose Stools Loratadine (Claritin) 10 mg PO DAILYPRN PRN PRN Reason: Sinus Symptoms Magnesium Hydroxide (Milk Of Magnesium) 30 ml PO DAILYPRN PRN PRN Reason: Constipation Mineral Oil/White Petrolatum (Eucerin Cream) 0 gm TOP BIDPRN PRN PRN Reason: Dry Skin Nitroglycerin (Nitrostat) 0.4 mg PO Q5MIN PRN PRN Reason: Chest Pain Ondansetron HCl (Zofran Odt) 4 mg PO Q6H PRN PRN Reason: Nausea/Vomiting Ondansetron HCl (Zofran) 4 mg IVP Q6H PRN PRN Reason: Nausea/Vomiting Phenol (Chloraseptic [place] 180 Ml Bot) 0 ml PO PRN PRN PRN Reason: Sore Throat Potassium Chloride (K-Dur) 20 meq PO QAM-WM [facility] Last Admin: 05/13/17 08:37 Dose: 20 meq Senna (Senokot) 2 tab PO HSPRN PRN PRN Reason: Constipation Sodium Chloride ([place] Nasal [place] 0.65%) 0 ml EA NARE QIDPRN PRN PRN Reason: Nasal Congestion Spironolactone (Aldactone) 25 mg PO QAM-WM [facility] Last Admin: 05/13/17 08:37 Dose: 25 mg Zolpidem Tartrate (Ambien) 5 mg PO HSPRN PRN PRN Reason: Insomnia MAR Reviewed: Yes Vital Signs: Vital Signs Temp 98.2 F 05/13/17 15:41 Pulse 87 05/13/17 15:40 Resp 19 05/13/17 15:40 BP 130/59 L 05/13/17 15:40 Pulse Ox 93 L 05/13/17 15:40 Intake & Output 05/12/17 05/13/17 05/13/17 18:59 06:59 18:59 Intake Total 960 85 Output Total 1450 550 Balance -490 -465 Weight 170 lb Intake: Intake, IV Amount 10 Oral 960 75 Output: Output, Rios 1450 550 Other: Voiding Method Indwelling Catheter Indwelling Catheter Bedside Commode # Bowel Movements 1 Progress Note: Exam - Physical Exam HEENT: PERRLA, moist MMs Neck: no JVD Cardiovascular: RRR Respiratory: clear to auscultation anteriorly Gastrointestinal: soft, non-tender Musculoskeletal: no edema Neurological: non-focal Psychiatric: normal affect, A&O x 3 Skin: no rash - Labs Result Diagrams: 05/13/17 04:30 05/13/17 04:30 Lab results: Laboratory Results - last 24 hr 05/12/17 05/12/17 05/12/17 11:27 17:02 20:17 WBC RBC Hgb Hct MCV MCH MCHC RDW Plt Count MPV Neutrophils % Neutrophils % (Manual) Lymphocytes % Monocytes % Eosinophils % Basophils % Neutrophils # Lymphocytes # Monocytes # Eosinophils # Basophils # Sodium Potassium Chloride Carbon Dioxide Anion Gap BUN Creatinine Estimated GFR (MDRD) Glucose POC Glucose 104 83 103 Calcium 05/13/17 05/13/17 05/13/17 04:30 04:30 11:51 WBC 7.8 RBC 4.86 Hgb 15.5 Hct 47.5 H MCV 97.7 MCH 31.9 H MCHC 32.6 RDW 13.4 Plt Count 118 L MPV 9.5 Neutrophils % 72.6 Neutrophils % (Manual) Not Reportable Lymphocytes % 13.8 L Monocytes % 13.5 H Eosinophils % 0.1 Basophils % 0.1 Neutrophils # 5.7 Lymphocytes # 1.1 L Monocytes # 1.1 H Eosinophils # 0.0 Basophils # 0.0 Sodium 137 Potassium 3.1 L Chloride 97 L Carbon Dioxide 28 Anion Gap 15 BUN 28 H Creatinine 0.96 Estimated GFR (MDRD) 57 Glucose 81 L POC Glucose 102 Calcium 8.8 Progress Note: A/P - Problems (1) Acute systolic CHF (congestive heart failure) Current Visit: Yes Status: Acute Code(s): I50.21 - ACUTE SYSTOLIC ( CONGESTIVE) HEART FAILURE (2) Acute pulmonary edema Current Visit: Yes Status: Resolved Code(s): J81.0 - ACUTE PULMONARY EDEMA (3) Acute respiratory failure with hypoxia Current Visit: Yes Status: Resolved Code(s): J96.01 - ACUTE RESPIRATORY FAILURE WITH HYPOXIA - Plan Plan: Continue present care, including nebs. Anticipating Cardiac Cath soon
[2017-05-13] MEDS ORDERED: Potassium Chloride 20 MEQ TAB PO SCH (17:15)
[2017-05-13] MEDS: Atorvastatin Calcium 40 MG TAB PO SCH (21:07)
[2017-05-14 05:29] VITALS: BMI 27.6
[2017-05-14] MEDS: Furosemide 40 MG/4 ML VIAL SLOW IVP SCH (05:54)
[2017-05-14 06:06] LABS: ALT (SGPT) 28 U/L (8-55); AST (SGOT) 58 U/L (5-34); Albumin 3.5 g/dL (3.4-4.8); Alkaline Phosphatase 83 U/L (40-150); Anion Gap 14 mmol/L (10-20); BUN (Urea Nitrogen) 37 mg/dL (9.8-20.1); Bilirubin, Total 0.6 mg/dL (0.2-1.2); Calc. Creatinine Clearance 58 mL/min (70-130); Calcium 9.4 mg/dL (7.8-10.44); Carbon Dioxide 28 mmol/L (23-31); Chloride 98 mmol/L (98-107); Estimated GFR-MDRD 53; Globulin 3.9 g/dL (2.4-3.5); Glucose 81 mg/dL (83-110); Magnesium 2.1 mg/dL (1.6-2.6); Potassium 3.3 mmol/L (3.5-5.1); Protein, Total 7.4 g/dL (6.0-8.3); Sodium 137 mmol/L (136-145)
[2017-05-14] MEDS ORDERED: Heparin 10,000 UNITS/1 ML VIAL ONE (06:32)
[2017-05-14] MEDS ORDERED: Potassium Chloride 20 MEQ TAB PO SCH (07:45)
[2017-05-14] MEDS ORDERED: Sodium Chloride 0.9% 1,000 ML IV SCH ×2 (08:00→09:37)
--- NOTE | 2017-05-14 08:19 | RAD ---
SINGLE VIEW OF THE CHEST: Comparison: 05-11-17 History: Pulmonary edema. FINDINGS: Single view of the chest shows a cardiomediastinal silhouette which is upper limits of normal in size . Patient is status post sternotomy. There is no evidence of consolidation, mass, or pleural effusion s. Degenerative changes are seen in the spine. IMPRESSION: No evidence of acute cardiopulmonary disease. POS: [facility]
[2017-05-14] MEDS ORDERED: Midazolam HCl 2 mg/2 ml Vial ONE (08:53)
[2017-05-14] MEDS ORDERED: Fentanyl 100 MCG/2 ML VIAL ONE (08:53)
[2017-05-14] MEDS ORDERED: Protamine Sulfate 50 MG/5 ML VIAL ONE (09:12)
[2017-05-14] MEDS ORDERED: Nitroglycerin 0.4 MG TAB (25 Tab Bottle) SL PRN (09:35)
[2017-05-14] MEDS ORDERED: traMADol HCl 50 MG TAB PO PRN (09:35)
[2017-05-14] MEDS ORDERED: Sodium Chloride 0.9% 200 ML IV PRN (09:45)
--- NOTE | 2017-05-14 10:09 | PDOC.PULPN ---
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 c/o some cough and congestion - ROS Respiratory: congestion, cough - Objective Allergies/Adverse Reactions: Allergies Allergy/AdvReac Type Severity Reaction Status Date / Time No Known Allergies Allergy Unverified 05/11/17 07:42 Medications: Current Medications Acetaminophen (Tylenol) 650 mg PO Q4H PRN PRN Reason: Headache/Fever or Pain Last Admin: 05/12/17 11:40 Dose: 650 mg Hydrocodone Bitart/Acetaminophen ([place] 5/325) 1 tab PO Q4H PRN PRN Reason: Moderate Pain (4-6) Al Hydroxide/Mg Hydroxide (Maalox) 30 ml PO Q6H PRN PRN Reason: Heartburn or Indigestion Albuterol/Ipratropium (Duoneb) 3 ml NEB [id number] SCH Last Admin: 05/14/17 09:07 Dose: Not Given Artificial Tears (Tears Naturale) 0 drop EA EYE PRN PRN PRN Reason: Dry Eyes Aspirin (Aspirin) 325 mg PO DAILY [facility] Last Admin: 05/13/17 08:37 Dose: 325 mg Atorvastatin Calcium (Lipitor) 80 mg PO HS [facility] Last Admin: 05/13/17 21:07 Dose: 80 mg Carvedilol (Coreg) 6.25 mg PO TID [facility] Last Admin: 05/13/17 21:07 Dose: 6.25 mg Dextrose/Water (Dextrose 50%) 25 gm SLOW IVP PRN PRN PRN Reason: Hypoglycemia Famotidine (Pepcid) 20 mg PO DAILY [facility] Last Admin: 05/13/17 08:33 Dose: 20 mg Furosemide (Lasix) 40 mg PO DAILY-[facility] Glucagon (Glucagon) 1 mg IM PRN PRN PRN Reason: Hypoglycemia Guaifenesin (Robitussin Sf) 200 mg PO Q4H PRN PRN Reason: Cough Last Admin: 05/12/17 09:24 Dose: 200 mg Hydralazine HCl (Apresoline) 10 mg SLOW IVP Q4H PRN PRN Reason: Systolic BP > 180 Last Admin: 05/12/17 18:50 Dose: 10 mg Dextrose/Water (D5w) 1,000 mls @ 0 mls/hr IV .Q0M PRN; As Directed PRN Reason: Hypoglycemia Ceftriaxone Sodium 1 gm/ (Syringe 0.4 ml/ Sterile Water) 10 mls @ 120 mls/hr SLOW IVP Q24HR@1200 [facility] Last Admin: 05/13/17 12:38 Dose: 10 mls Sodium Chloride (Normal [place] 0.9%) 200 mls @ 0 mls/hr IV ONE PRN; As Directed PRN Reason: Bolus PRN SBP < 90 mm Hg Stop: 05/17/17 09:46 Sodium Chloride (Normal Saline 0.9%) 1,000 mls @ 125 mls/hr IV .Q8H [facility] Stop: 05/14/17 15:30 Insulin Human Lispro (Humalog) 0 units SC .MODERATE SLIDING SC PRN PRN Reason: Moderate Correctional Scale Last Admin: 05/11/17 10:15 Dose: 2 unit Insulin Human Lispro (Humalog) 0 units SC .BEDTIME SLIDING SC PRN PRN Reason: Bedtime Correctional Scale Lisinopril (Zestril) 10 mg PO BID [facility] Last Admin: 05/13/17 21:06 Dose: 10 mg Loperamide HCl (Imodium) 2 mg PO PRN PRN PRN Reason: Diarrhea/Loose Stools Loratadine (Claritin) 10 mg PO DAILYPRN PRN PRN Reason: Sinus Symptoms Magnesium Hydroxide (Milk Of Magnesium) 30 ml PO DAILYPRN PRN PRN Reason: Constipation Mineral Oil/White Petrolatum (Eucerin Cream) 0 gm TOP BIDPRN PRN PRN Reason: Dry Skin Miscellaneous Information (Communication Order-Pharmacy) 0 each FS ONE [facility] Stop: 05/14/17 15:00 Nitroglycerin (Nitrostat) 0.4 mg PO Q5MIN PRN PRN Reason: Chest Pain Nitroglycerin (Nitrostat) 0.4 mg SL Q5MIN PRN PRN Reason: Chest Pain Ondansetron HCl (Zofran Odt) 4 mg PO Q6H PRN PRN Reason: Nausea/Vomiting Ondansetron HCl (Zofran) 4 mg IVP Q6H PRN PRN Reason: Nausea/Vomiting Phenol (Chloraseptic [place] 180 Ml Bot) 0 ml PO PRN PRN PRN Reason: Sore Throat Potassium Chloride (K-Dur) 20 meq PO QAM-WM [facility] Last Admin: 05/13/17 08:37 Dose: 20 meq Senna (Senokot) 2 tab PO HSPRN PRN PRN Reason: Constipation Sodium Chloride ([place] Nasal [place] 0.65%) 0 ml EA NARE QIDPRN PRN PRN Reason: Nasal Congestion Spironolactone (Aldactone) 25 mg PO QAM-WM [facility] Last Admin: 05/13/17 08:37 Dose: 25 mg Tramadol HCl (Ultram) 50 mg PO Q6H PRN PRN Reason: Moderate Pain (4-6) Zolpidem Tartrate (Ambien) 5 mg PO HSPRN PRN PRN Reason: Insomnia JUL Reviewed: Yes Vital Signs: Vital Signs Temp 98.6 F 05/14/17 08:10 Pulse 58 L 05/14/17 08:10 Resp 16 05/14/17 08:10 BP 143/66 H 05/14/17 08:10 Pulse Ox 93 L 05/14/17 08:10 Intake & Output 05/13/17 05/14/17 05/14/17 18:59 06:59 18:59 Intake Total 960 260 Output Total 550 Balance 410 260 Weight 171 lb 3.2 oz Intake: Intake, IV Amount 10 Oral 960 250 Output: Urine 550 Other: Voiding Method Bedside Commode Bedside Commode # Unmeasured Voids 3 2 # Bowel Movements 3 1 Progress Note: Exam - Physical Exam Constitutional: NAD HEENT: PERRLA, sclera anicteric, TM's clear Neck: no nodes, no JVD Cardiovascular: RRR, no significant murmur Respiratory: clear to auscultation bilaterally Gastrointestinal: soft, non-tender Musculoskeletal: no edema Neurological: non-focal Lymphatic: no nodes Psychiatric: normal affect, A&O x 3 Skin: no rash - Labs Result Diagrams: 05/13/17 04:30 05/14/17 04:20 Lab results: Laboratory Results - last 24 hr 05/13/17 05/13/17 05/13/17 11:51 16:34 20:39 Activated Clotting Time Sodium Potassium Chloride Carbon Dioxide Anion Gap BUN Creatinine Estimated GFR (MDRD) Glucose POC Glucose 102 88 93 Calcium Magnesium Total Bilirubin AST ALT Alkaline Phosphatase Serum Total Protein Albumin Globulin Albumin/Globulin Ratio 05/14/17 05/14/17 05/14/17 04:20 05:54 08:58 Activated Clotting Time 126 Sodium 137 Potassium 3.3 L Chloride 98 Carbon Dioxide 28 Anion Gap 14 BUN 37 H Creatinine 1.02 Estimated GFR (MDRD) 53 Glucose 81 L POC Glucose 140 H Calcium 9.4 Magnesium 2.1 Total Bilirubin 0.6 AST 58 H ALT 28 Alkaline Phosphatase 83 Serum Total Protein 7.4 Albumin 3.5 Globulin 3.9 H Albumin/Globulin Ratio 0.9 L Progress Note: A/P - Problems (1) Acute systolic CHF (congestive heart failure) Current Visit: Yes Status: Acute Code(s): I50.21 - ACUTE SYSTOLIC ( CONGESTIVE) HEART FAILURE (2) Acute pulmonary edema Current Visit: Yes Status: Resolved Code(s): J81.0 - ACUTE PULMONARY EDEMA (3) Acute respiratory failure with hypoxia Current Visit: Yes Status: Resolved Code(s): J96.01 - ACUTE RESPIRATORY FAILURE WITH HYPOXIA - Plan Plan: continue nebs. Patient can probably change to po antibiotics. Not much further to add.
[2017-05-14] MEDS: Aspirin 325 MG TAB PO SCH (12:34)
[2017-05-14] MEDS: Spironolactone 25 MG TAB PO SCH (12:34)
[2017-05-14] MEDS: Potassium Chloride 20 MEQ TAB PO SCH (12:34)
[2017-05-14] MEDS: Lisinopril 10 MG TAB PO SCH ×2 (12:35→21:05)
[2017-05-14] MEDS: Famotidine 20 MG TAB PO SCH (12:35)
[2017-05-14] MEDS: Carvedilol 6.25 MG TAB PO SCH ×4 (12:35→21:06)
[2017-05-14] MEDS: cefTRIAXone\\ROCEPHIN 1 GM, Syringe 0.4 ML in Sterile Water 9.6 ML SLOW IVP SCH (12:37)
--- NOTE | 2017-05-14 12:41 | PDOC.PN ---
- Subjective Encounter Start Date: 05/14/17 Encounter Start Time: 07:00 pt is planned for cardiac cath, it was done and after that pt was seen again, cath came back Ok, pt is feeling ok, no chest pain or dyspnea - Objective Resuscitation Status: Resuscitation Status FULL:Full Resuscitation MAR Reviewed: Yes Vital Signs & Weight: Vital Signs (12 hours) Temp Pulse Resp BP BP Pulse Ox 05/14/17 12:35 130/59 L 05/14/17 11:15 98.8 F 65 20 129/60 96 05/14/17 08:10 98.6 F 58 L 16 143/66 H 93 L 05/14/17 04:00 99.2 F 68 20 128/60 92 L Weight Weight 171 lb 3.2 oz Most Recent Monitor Data Heart Rate from ECG 82 NIBP 156/65 NIBP BP-Mean 99 Respiration from ECG 20 SpO2 95 I&O: 05/13/17 05/14/17 05/15/17 06:59 06:59 06:59 Intake Total 1045 1220 Output Total 2000 550 Balance -955 670 Result Diagrams: 05/13/17 04:30 05/14/17 04:20 Additional Labs: Accuchecks 05/14/17 05/14/17 05/13/17 12:01 05:54 20:39 POC Glucose 91 140 H 93 05/13/17 16:34 POC Glucose 88 Radiology Reviewed by me: Yes (chest xray) EKG Reviewed by me: Yes (nsr) Phys Exam - Physical Examination Constitutional: NAD HEENT: PERRLA, moist MMs, sclera anicteric Neck: no JVD, supple Respiratory: no wheezing, no rales, no rhonchi Cardiovascular: RRR, no significant murmur, no rub Gastrointestinal: soft, non-tender, no distention, positive bowel sounds Musculoskeletal: no edema, pulses present Neurological: non-focal, normal sensation, moves all 4 limbs Lymphatic: no nodes Psychiatric: normal affect, A&O x 3 Skin: no rash, normal turgor Dx/Plan (1) Acute respiratory failure with hypoxia Code(s): J96.01 - ACUTE RESPIRATORY FAILURE WITH HYPOXIA Status: Resolved (2) Acute systolic CHF (congestive heart failure) Code(s): I50.21 - ACUTE SYSTOLIC (CONGESTIVE) HEART FAILURE Status: Acute (3) Hypokalemia Code(s): E87.6 - HYPOKALEMIA Status: Acute (4) NSTEMI (non-ST elevated myocardial infarction) Code(s): I21.4 - NON-ST ELEVATION (NSTEMI) MYOCARDIAL INFARCTION Status: Acute (5) UTI (urinary tract infection) Status: Suspected (6) CAD (coronary artery disease) Code(s): I25.10 - ATHSCL HEART DISEASE OF [place] CORONARY ARTERY W/O ANG PCTRS Status: Chronic (7) Dyslipidemia Code(s): E78.5 - HYPERLIPIDEMIA, UNSPECIFIED Status: Chronic (8) Hypertension Code(s): I10 - ESSENTIAL (PRIMARY) HYPERTENSION Status: Chronic (9) Acute pulmonary edema Code(s): J81.0 - ACUTE PULMONARY EDEMA Status: Resolved (10) Hypertensive urgency Code(s): I16.0 - HYPERTENSIVE URGENCY Status: Resolved - Plan cont current plan of care, plan discussed w/ family, continue antibiotics * cardiac cath showed patent grafts * pt will need life vest * today will change to po levaquin * today coreg increased to TID, dose of lisinopril increased. * medication reviewed as below * symptomatic treatment * pt prefers to go home tomorrow * will monitor * wean off oxygen Review of Systems - Review of Systems ENT: negative: Ear Pain, Ear Discharge, Nose Pain, Nose Discharge, Nose Congestion, Mouth Pain, Mouth Swelling, Throat Pain, Throat Swelling, Other Respiratory: negative: Cough, Dry, Shortness of Breath, Hemoptysis, SOB with Excertion, Pleuritic Pain, Sputum, Wheezing Cardiovascular: negative: chest pain, palpitations, orthopnea, paroxysmal nocturnal dyspnea, edema, light headedness, other Gastrointestinal: negative: Nausea, Vomiting, Abdominal Pain, Diarrhea, Constipation, Melena, Hematochezia, Other Genitourinary: negative: Dysuria, Frequency, Incontinence, Hematuria, Retention , Other Musculoskeletal: negative: Neck Pain, Shoulder Pain, Arm Pain, Back Pain, Hand Pain, Leg Pain, Foot Pain, Other Skin: negative: Rash, Lesions, John, Bruising, Other - Medications/Allergies Allergies/Adverse Reactions: Allergies Allergy/AdvReac Type Severity Reaction Status Date / Time No Known Allergies Allergy Unverified 05/11/17 07:42 Medications: Current Medications Acetaminophen (Tylenol) 650 mg PO Q4H PRN PRN Reason: Headache/Fever or Pain Last Admin: 05/12/17 11:40 Dose: 650 mg Hydrocodone Bitart/Acetaminophen ([place] 5/325) 1 tab PO Q4H PRN PRN Reason: Moderate Pain (4-6) Al Hydroxide/Mg Hydroxide (Maalox) 30 ml PO Q6H PRN PRN Reason: Heartburn or Indigestion Albuterol/Ipratropium (Duoneb) 3 ml NEB [id number] Last Admin: 05/14/17 09:07 Dose: Not Given Artificial Tears (Tears Naturale) 0 drop EA EYE PRN PRN PRN Reason: Dry Eyes Aspirin (Aspirin) 325 mg PO DAILY [facility] Last Admin: 05/14/17 12:34 Dose: 325 mg Atorvastatin Calcium (Lipitor) 80 mg PO HS [facility] Last Admin: 05/13/17 21:07 Dose: 80 mg Carvedilol (Coreg) 6.25 mg PO TID [facility] Last Admin: 05/14/17 12:35 Dose: Not Given Dextrose/Water (Dextrose 50%) 25 gm SLOW IVP PRN PRN PRN Reason: Hypoglycemia Famotidine (Pepcid) 20 mg PO DAILY [facility] Last Admin: 05/14/17 12:35 Dose: 20 mg Furosemide (Lasix) 40 mg PO DAILY[facility] Glucagon (Glucagon) 1 mg IM PRN PRN PRN Reason: Hypoglycemia Guaifenesin (Robitussin Sf) 200 mg PO Q4H PRN PRN Reason: Cough Last Admin: 05/12/17 09:24 Dose: 200 mg Hydralazine HCl (Apresoline) 10 mg SLOW IVP Q4H PRN PRN Reason: Systolic BP > 180 Last Admin: 05/12/17 18:50 Dose: 10 mg Dextrose/Water (D5w) 1,000 mls @ 0 mls/hr IV .Q0M PRN; As Directed PRN Reason: Hypoglycemia Sodium Chloride (Normal Saline 0.9%) 200 mls @ 0 mls/hr IV ONE PRN; As Directed PRN Reason: Bolus PRN SBP < 90 mm Hg Stop: 05/17/17 09:46 Sodium Chloride (Normal Saline 0.9%) 1,000 mls @ 125 mls/hr IV .Q8H [facility] Stop: 05/14/17 15:30 Last Admin: 05/14/17 09:37 Dose: 1,000 mls Insulin Human Lispro (Humalog) 0 units SC .MODERATE SLIDING SC PRN PRN Reason: Moderate Correctional Scale Last Admin: 05/11/17 10:15 Dose: 2 unit Insulin Human Lispro (Humalog) 0 units SC .BEDTIME SLIDING SC PRN PRN Reason: Bedtime Correctional Scale Levofloxacin (Levaquin) 500 mg PO 0600 [facility] Lisinopril (Zestril) 10 mg PO BID [facility] Last Admin: 05/14/17 12:35 Dose: Not Given Loperamide HCl (Imodium) 2 mg PO PRN PRN PRN Reason: Diarrhea/Loose Stools Loratadine (Claritin) 10 mg PO DAILYPRN PRN PRN Reason: Sinus Symptoms Magnesium Hydroxide (Milk Of Magnesium) 30 ml PO DAILYPRN PRN PRN Reason: Constipation Mineral Oil/White Petrolatum (Eucerin Cream) 0 gm TOP BIDPRN PRN PRN Reason: Dry Skin Miscellaneous Information (Communication Order-Pharmacy) 0 each FS ONE [facility] Stop: 05/14/17 15:00 Nitroglycerin (Nitrostat) 0.4 mg PO Q5MIN PRN PRN Reason: Chest Pain Nitroglycerin (Nitrostat) 0.4 mg SL Q5MIN PRN PRN Reason: Chest Pain Ondansetron HCl (Zofran Odt) 4 mg PO Q6H PRN PRN Reason: Nausea/Vomiting Ondansetron HCl (Zofran) 4 mg IVP Q6H PRN PRN Reason: Nausea/Vomiting Phenol (Chloraseptic [place] 180 Ml Bot) 0 ml PO PRN PRN PRN Reason: Sore Throat Potassium Chloride (K-Dur) 20 meq PO QAM[facility] Last Admin: 05/14/17 12:34 Dose: 20 meq Senna (Senokot) 2 tab PO HSPRN PRN PRN Reason: Constipation Sodium Chloride ([place] Nasal [place] 0.65%) 0 ml EA NARE QIDPRN PRN PRN Reason: Nasal Congestion Spironolactone (Aldactone) 25 mg PO QAM-WM [facility] Last Admin: 05/14/17 12:34 Dose: 25 mg Tramadol HCl (Ultram) 50 mg PO Q6H PRN PRN Reason: Moderate Pain (4-6) Zolpidem Tartrate (Ambien) 5 mg PO HSPRN PRN PRN Reason: Insomnia
[2017-05-14] MEDS ORDERED: Iopamidol 370 76% 100 ML VIAL ONE (13:30)
[2017-05-14] MEDS ORDERED: Carvedilol 3.125 MG TAB PO SCH (15:30)
[2017-05-14] MEDS: Atorvastatin Calcium 40 MG TAB PO SCH (21:04)
[2017-05-15] MEDS ORDERED: Furosemide 40 MG TAB PO SCH (07:30)
[2017-05-15] MEDS: Spironolactone 25 MG TAB PO SCH (09:38)
[2017-05-15] MEDS: Lisinopril 10 MG TAB PO SCH (09:38)
[2017-05-15] MEDS: Aspirin 325 MG TAB PO SCH (09:38)
[2017-05-15] MEDS: Carvedilol 6.25 MG TAB PO SCH (09:38)
[2017-05-15] MEDS: Famotidine 20 MG TAB PO SCH (09:38)
[2017-05-15] MEDS: Potassium Chloride 20 MEQ TAB PO SCH (09:39)
--- NOTE | 2017-05-15 11:13 | PDOC.PN ---
- Subjective Encounter Start Date: 05/15/17 Encounter Start Time: 07:40 Patient seen and examined. No new complaints. No overnight events - Objective Resuscitation Status: Resuscitation Status FULL:Full Resuscitation MAR Reviewed: Yes Vital Signs & Weight: Vital Signs (12 hours) Temp Pulse Resp BP BP Pulse Ox 05/15/17 09:38 130/59 L 05/15/17 04:00 98.2 F 66 18 114/56 L 95 05/15/17 00:00 98.1 F 59 L 16 100/54 L 92 L Weight Weight 170 lb 12.8 oz Most Recent Monitor Data Heart Rate from ECG 82 NIBP 156/65 NIBP BP-Mean 99 Respiration from ECG 20 SpO2 95 I&O: 05/14/17 05/15/17 05/16/17 06:59 06:59 06:59 Intake Total 1220 1370 Output Total 550 1050 Balance 670 320 Result Diagrams: 05/13/17 04:30 05/14/17 04:20 Additional Labs: Accuchecks 05/15/17 05/14/17 05/14/17 06:05 20:50 16:57 POC Glucose 94 120 H 125 H 05/14/17 05/13/17 12:01 06:23 POC Glucose 91 84 EKG Reviewed by me: Yes (nsr) Phys Exam - Physical Examination Constitutional: NAD HEENT: PERRLA, moist MMs, sclera anicteric Neck: no JVD, supple Respiratory: no wheezing, no rales, no rhonchi Cardiovascular: RRR, no significant murmur, no rub Gastrointestinal: soft, non-tender, no distention, positive bowel sounds Musculoskeletal: no edema, pulses present Neurological: non-focal, normal sensation, moves all 4 limbs Psychiatric: normal affect, A&O x 3 Skin: no rash, normal turgor Dx/Plan (1) Acute respiratory failure with hypoxia Code(s): J96.01 - ACUTE RESPIRATORY FAILURE WITH HYPOXIA Status: Resolved (2) Acute systolic CHF (congestive heart failure) Code(s): I50.21 - ACUTE SYSTOLIC (CONGESTIVE) HEART FAILURE Status: Acute (3) Hypokalemia Code(s): E87.6 - HYPOKALEMIA Status: Acute (4) NSTEMI (non-ST elevated myocardial infarction) Code(s): I21.4 - NON-ST ELEVATION (NSTEMI) MYOCARDIAL INFARCTION Status: Acute (5) UTI (urinary tract infection) Status: Suspected (6) CAD (coronary artery disease) Code(s): I25.10 - ATHSCL HEART DISEASE OF [place] CORONARY ARTERY W/O ANG PCTRS Status: Chronic (7) Dyslipidemia Code(s): E78.5 - HYPERLIPIDEMIA, UNSPECIFIED Status: Chronic (8) Hypertension Code(s): I10 - ESSENTIAL (PRIMARY) HYPERTENSION Status: Chronic (9) Acute pulmonary edema Code(s): J81.0 - ACUTE PULMONARY EDEMA Status: Resolved (10) Hypertensive urgency Code(s): I16.0 - HYPERTENSIVE URGENCY Status: Resolved - Plan cont current plan of care, plan discussed w/ family * medication reviewed as below * symptomatic treatment * stable for discharge * see discharge summery * life vest arranged. Review of Systems - Review of Systems ENT: negative: Ear Pain, Ear Discharge, Nose Pain, Nose Discharge, Nose Congestion, Mouth Pain, Mouth Swelling, Throat Pain, Throat Swelling, Other Respiratory: negative: Cough, Dry, Shortness of Breath, Hemoptysis, SOB with Excertion, Pleuritic Pain, Sputum, Wheezing Cardiovascular: negative: chest pain, palpitations, orthopnea, paroxysmal nocturnal dyspnea, edema, light headedness, other Gastrointestinal: negative: Nausea, Vomiting, Abdominal Pain, Diarrhea, Constipation, Melena, Hematochezia, Other Genitourinary: negative: Dysuria, Frequency, Incontinence, Hematuria, Retention , Other Musculoskeletal: negative: Neck Pain, Shoulder Pain, Arm Pain, Back Pain, Hand Pain, Leg Pain, Foot Pain, Other Skin: negative: Rash, Lesions, John, Bruising, Other - Medications/Allergies Allergies/Adverse Reactions: Allergies Allergy/AdvReac Type Severity Reaction Status Date / Time No Known Allergies Allergy Unverified 05/11/17 07:42 Medications: Current Medications Acetaminophen (Tylenol) 650 mg PO Q4H PRN PRN Reason: Headache/Fever or Pain Last Admin: 05/12/17 11:40 Dose: 650 mg Hydrocodone Bitart/Acetaminophen ([place] 5/325) 1 tab PO Q4H PRN PRN Reason: Moderate Pain (4-6) Al Hydroxide/Mg Hydroxide (Maalox) 30 ml PO Q6H PRN PRN Reason: Heartburn or Indigestion Albuterol/Ipratropium (Duoneb) 3 ml NEB [id number] [facility] Last Admin: 05/15/17 08:30 Dose: Not Given Artificial Tears (Tears Naturale) 0 drop EA EYE PRN PRN PRN Reason: Dry Eyes Aspirin (Aspirin) 325 mg PO DAILY [facility] Last Admin: 05/15/17 09:38 Dose: 325 mg Atorvastatin Calcium (Lipitor) 80 mg PO HS [facility] Last Admin: 05/14/17 21:04 Dose: 80 mg Carvedilol (Coreg) 6.25 mg PO TID [facility] Last Admin: 05/15/17 09:38 Dose: 6.25 mg Dextrose/Water (Dextrose 50%) 25 gm SLOW IVP PRN PRN PRN Reason: Hypoglycemia Famotidine (Pepcid) 20 mg PO DAILY [facility] Last Admin: 05/15/17 09:38 Dose: 20 mg Furosemide (Lasix) 40 mg PO DAILY[facility] Last Admin: 05/15/17 09:39 Dose: 40 mg Glucagon (Glucagon) 1 mg IM PRN PRN PRN Reason: Hypoglycemia Guaifenesin (Robitussin Sf) 200 mg PO Q4H PRN PRN Reason: Cough Last Admin: 05/12/17 09:24 Dose: 200 mg Hydralazine HCl (Apresoline) 10 mg SLOW IVP Q4H PRN PRN Reason: Systolic BP > 180 Last Admin: 05/12/17 18:50 Dose: 10 mg Dextrose/Water (D5w) 1,000 mls @ 0 mls/hr IV .Q0M PRN; As Directed PRN Reason: Hypoglycemia Sodium Chloride (Normal Saline 0.9%) 200 mls @ 0 mls/hr IV ONE PRN; As Directed PRN Reason: Bolus PRN SBP < 90 mm Hg Stop: 05/17/17 09:46 Insulin Human Lispro (Humalog) 0 units SC .MODERATE SLIDING SC PRN PRN Reason: Moderate Correctional Scale Last Admin: 05/11/17 10:15 Dose: 2 unit Insulin Human Lispro (Humalog) 0 units SC .BEDTIME SLIDING SC PRN PRN Reason: Bedtime Correctional Scale Levofloxacin (Levaquin) 500 mg PO 0600 [facility] Last Admin: 05/15/17 05:54 Dose: 500 mg Lisinopril (Zestril) 10 mg PO BID [facility] Last Admin: 05/15/17 09:38 Dose: 10 mg Loperamide HCl (Imodium) 2 mg PO PRN PRN PRN Reason: Diarrhea/Loose Stools Last Admin: 05/14/17 21:06 Dose: 2 mg Loratadine (Claritin) 10 mg PO DAILYPRN PRN PRN Reason: Sinus Symptoms Magnesium Hydroxide (Milk Of Magnesium) 30 ml PO DAILYPRN PRN PRN Reason: Constipation Mineral Oil/White Petrolatum (Eucerin Cream) 0 gm TOP BIDPRN PRN PRN Reason: Dry Skin Nitroglycerin (Nitrostat) 0.4 mg PO Q5MIN PRN PRN Reason: Chest Pain Nitroglycerin (Nitrostat) 0.4 mg SL Q5MIN PRN PRN Reason: Chest Pain Ondansetron HCl (Zofran Odt) 4 mg PO Q6H PRN PRN Reason: Nausea/Vomiting Ondansetron HCl (Zofran) 4 mg IVP Q6H PRN PRN Reason: Nausea/Vomiting Phenol (Chloraseptic [place] 180 Ml Bot) 0 ml PO PRN PRN PRN Reason: Sore Throat Potassium Chloride (K-Dur) 20 meq PO [facility] Last Admin: 05/15/17 09:39 Dose: 20 meq Senna (Senokot) 2 tab PO HSPRN PRN PRN Reason: Constipation Sodium Chloride ([place] Nasal [place] 0.65%) 0 ml EA NARE QIDPRN PRN PRN Reason: Nasal Congestion Spironolactone (Aldactone) 25 mg PO [facility] Last Admin: 05/15/17 09:38 Dose: 25 mg Tramadol HCl (Ultram) 50 mg PO Q6H PRN PRN Reason: Moderate Pain (4-6) Zolpidem Tartrate (Ambien) 5 mg PO HSPRN PRN PRN Reason: Insomnia
--- NOTE | 2017-05-15 13:26 | DIS ---
DATE OF ADMISSION: 05/11/2017 DATE OF DISCHARGE: 05/15/2017 PRIMARY CARE PHYSICIAN: [facility] call admission. DISCHARGE DISPOSITION: Home. PRIMARY DISCHARGE DIAGNOSES: 1. Acute systolic congestive heart failure. 2. Acute pulmonary edema. 3. Acute respiratory failure with hypoxia. 4. Non-ST elevation myocardial infarction. 5. Hypokalemia. 6. Hypertensive urgency on admission. SECONDARY DISCHARGE DIAGNOSES: 1. Coronary artery disease with coronary artery bypass grafting. 2. Hypertension, 3. Dyslipidemia. PRIMARY PROCEDURE/OPERATION: Cardiac catheterization was performed while in hospital and the patient had a patent graft. RADIOLOGICAL INVESTIGATION: Echocardiography showed EF 20%-25%. CT brain was negative for any acute intracranial process. Ultrasound was negative for any DVT. Repeat chest x-ray showed no acute card iopulmonary process. SIGNIFICANT LABORATORY DATA: WBC 7.8, hemoglobin 15.5, platelets 118. Sodium 137, potassium 3.3, BU N 37, creatinine 1.02, calcium 9.4, AST 58, ALT 28, alkaline phosphatase 83, albumin 3.5, LDL 63. Ch olesterol 121, triglycerides 66, HDL 45. Urinalysis suggestive of urinary tract infection. Urine cu lture negative, influenza negative. DISCHARGE MEDICATIONS: Aspirin 325 mg p.o. daily, Lipitor 80 mg p.o. at bedtime, Coreg 6.25 mg p.o. t.i.d., Lasix 40 mg p.o. daily, Prevacid 15 mg p.o. daily, Levaquin 500 mg p.o. daily for 3 days, lis inopril 10 mg p.o. b.i.d., potassium chloride 20 mEq p.o. daily, Aldactone 25 mg p.o. daily. CONTRAINDICATIONS: None. CODE STATUS: FULL CODE. INPATIENT CONSULTANTS: Dr. Styles was following for respiratory failure as patient stayed in CCU. Dr Odilon Fabian and Dr. Vlilafana was following while in hospital. TEST RESULTS PENDING ON DISCHARGE: None. ALLERGIES: No known drug allergy. DISCHARGE PLAN: Post hospital, the patient is advised to follow up with primary care physician, Dr. Lawson on 05/22/2017 at 9:00 a.m. The patient is advised to follow up with Dr. Villafana and zion iologist as instructed. HOSPITAL COURSE: A 76-year-old female who was initially taken to [facility] for acu te onset of shortness of breath. At [facility], she was having hypertensive urgency . She had acute pulmonary edema. She was given high dose of Lasix with some improvement. Patient a lso found with non-ST elevation myocardial infarction. She was transferred to our hospital for high r level of care. She was admitted in CCU. She had urinalysis, which was suggestive of UTI and that is why we started on empiric antibiotic ther apy. We continued Lasix, nitropatch, Coreg, lisinopril, and then we adjusted medication as above. The patient was suffering from acute pulmonary edema due to acute congestive heart failure secondary to non-ST elevation myocardial infarction. Patient underwent cardiac catheterization and luckily her bypass graft was patent. She had echocardiography, which showed systolic dysfunction with EF 20%-25 %, and that is why the patient was on Coreg, lisinopril, as well as Aldactone. This patient required LifeVest arrangement before discharge. On discharge, we changed to the above-mentioned medications and she was hemodynamically stable. Her urine cultures remain negative. We are finishing complete course of Levaquin for another 3 days. Her electrolytes were replaced while in hospital. The patient is ambulatory and tolerating p.o. we ll. The patient will follow up with primary care physician and geological aide as instructed. The patient w ill need repeat echocardiography in 3-6 months. The patient is seen and examined at bedside today. I provided necessary patient education about hear t failure, dietary education, fluid restriction and medications. We sent all new medication to her p harmacy. Plan of care discussed with the family member as well. The patient is seen and examined at bedside today. Please see my progress note from today for furthe r details. Total time spent on discharge day 31 minutes.
[2017-05-15 14:32] VITALS: BP 132/58; TEMP 98.1
== END 2017-05-15 15:30 | disposition home or self-care (01) | DRG 280 ==
LOC: ERS 03:22 → CCU 05:06 → 2NO 16:09
PROVIDERS: ADMIT Internal Medicine; ATTEND Internal Medicine
PROC: B2131ZZ Fluoroscopy of Multiple Coronary Artery Bypass Grafts using Low Osmolar Contrast (ICD-10-PCS; principal; 2017-05-14)
PROC: B2181ZZ Fluoroscopy of Left Internal Mammary Bypass Graft using Low Osmolar Contrast (ICD-10-PCS; 2017-05-14)
PROC: B2111ZZ Fluoroscopy of Multiple Coronary Arteries using Low Osmolar Contrast (ICD-10-PCS; 2017-05-14)
DX: I11.0 Hypertensive heart disease with heart failure (principal); I21.A1 Myocardial infarction type 2; J96.01 Acute respiratory failure with hypoxia; N39.0 Urinary tract infection, site not specified; I47.1 Supraventricular tachycardia; I50.23 Acute on chronic systolic (congestive) heart failure; E87.6 Hypokalemia; I16.0 Hypertensive urgency; I25.10 Atherosclerotic heart disease of native coronary artery without angina pectoris; Z95.1 Presence of aortocoronary bypass graft; Z23 Encounter for immunization; E78.5 Hyperlipidemia, unspecified; R73.9 Hyperglycemia, unspecified; F17.210 Nicotine dependence, cigarettes, uncomplicated; I25.5 Ischemic cardiomyopathy; I44.7 Left bundle-branch block, unspecified
CPT/HCPCS: 36415; 36416; 70450; 71010; 80048; 80053; 80061; 81001; 82805; 83036; 83735; 84443; 84550; 85025; 85347; 87086; 90471; 90682; 93005; 93306; 93455; 93798; 93970; 94660; 96372; 99152; A4216; C1769; G0008; J0360; J0696; J1644; J1650; J1940; J2250; J2720; J3010; J7050; J7620; Q2036